=== PATIENT | male | born 1970 | race Two or more races ===

== ENCOUNTER 2022-08-18 17:40 | Emergency (ER) | payer MEDICAID, OTHER ==
[~2022-08-18] VITALS: Ht 172.7 cm; Wt 94.3 kg
--- NOTE | 2022-08-18 17:40 | NUR ---
BIBFAMILY C/O WORSENING ABDOMINAL PAIN X 5 DAYS. AMBULATORY, PLACED ON BED, IN PAIN 07/16
--- NOTE | 2022-08-18 18:14 | NUR ---
URINE SAMPLE SENT TO LAB
--- NOTE | 2022-08-18 18:18 | NUR ---
HAND STONE POLISHER AT BEDSIDE
--- NOTE | 2022-08-18 18:25 | NUR ---
PATIENT TAKEN TO CT VIA [facility]
[2022-08-18 18:34] LABS: BILIRUBIN,URINE 1+ (NEGATIVE); COLOR,URINE YELLOW (YELLOW); LEUKOCYTE ESTERASE ,URINE NEGATIVE (NEGATIVE); NITRITE, URINE NEGATIVE (NEGATIVE); PROTEIN,URINE 1+ mg/dl (NEGATIVE); UGLUCOSE NEGATIVE (NEGATIVE)
[2022-08-18 18:41] LABS: BACTERIA,URINE RARE /HPF (None Seen); MUCUS,URINE Many /LPF (None Seen); URINE AMORPHOUS URATE Many /HPF (None Seen)
[2022-08-18 18:45] LABS: BASOPHILS % (AUTO) 0.3 % (0.0-2.0); EOSINOPHILS % (AUTO) 3.1 % (0.0-6.0); HEMATOCRIT 43 % (39-51); HEMOGLOBIN 13.9 g/dL (13.5-17.5); LYMPHOCYTES # (AUTO) 2.6 K/uL (0.8-4.8); LYMPHOCYTES % (AUTO) 34.4 % (20.0-44.0); MEAN CORPUSCULAR HGB CONC 33 g/dl (31.0-36.0); MEAN CORPUSCULAR VOLUME 85 fL (80-96); MONOCYTES # (AUTO) 0.6 K/uL (0.1-1.30); MONOCYTES % (AUTO) 7.3 % (2.0-12.0); NEUTROPHILS # (AUTO) 4.2 K/uL (1.8-8.9); NEUTROPHILS % (AUTO) 54.9 % (43.0-81.0); PLATELET COUNT (AUTO) 354 K/uL (150-450); RED BLOOD CELL COUNT(AUTO) 5.01 MIL/uL (4.5-6.0); WHITE BLOOD COUNT (AUTO) 7.7 K/uL (4.3-11.0)
[2022-08-18 18:55] LABS: ALANINE AMINOTRANSFERASE 27 U/L (12-78); ALBUMIN 3.2 g/dL (3.4-5.0); ALKALINE PHOSPHATASE 96 U/L (46-116); ASPARTATE AMINOTRANSFERASE 13 U/L (15-37); BILIRUBIN,DIRECT 0.1 mg/dL (0.0-0.2); BILIRUBIN,TOTAL 0.2 mg/dL (0.2-1.0); CALCIUM, SERUM 8.7 mg/dL (8.5-10.1); CARBON DIOXIDE 26 mmol/L (21-32); CHLORIDE 106 mmol/L (98-107); GLUCOSE 134 mg/dL (74-106); LIPASE 66 U/L (73-393); POTASSIUM 4.1 mmol/L (3.5-5.1); SODIUM SERUM 137 mmol/L (136-145); TOTAL PROTEIN, SERUM 6.9 g/dL (6.4-8.2); UREA NITROGEN, BLOOD 17 mg/dL (7-18)
[2022-08-18 18:56] LABS: SQUAMOUS EPITHELIAL CELL,UR 0-2 /HPF (None Seen)
[2022-08-18] MEDS ORDERED: ONDANSETRON HCL/PF 4 MG/2 ML VIAL ONE (19:16)
[2022-08-18] MEDS ORDERED: MORPHINE SULFATE INJ 4 MG/ML DISP.SYRIN ONE (19:17)
[2022-08-18] MEDS ORDERED: ONDANSETRON HCL/PF 4 MG/2 ML VIAL IVP ONE (19:30)
[2022-08-18] MEDS ORDERED: MORPHINE SULFATE INJ 2 MG/ML DISP.SYRIN IV ONE (19:30)
[2022-08-18] MEDS ORDERED: PIPERACILLIN /TAZOBACTAM 3.375 G in IV D5W 50 ML IV ONE (19:30)
[2022-08-18] MEDS ORDERED: PIPERACILLIN /TAZOBACTAM 3.375 G VIAL IV ONE (19:42)
--- NOTE | 2022-08-18 19:51 | NUR ---
SWAB FOR COVID19 SENT TO LAB
[2022-08-18] MEDS ORDERED: diphenhydrAMINE HCL 50 MG/ML VIAL ONE (20:41)
[2022-08-18] MEDS ORDERED: diphenhydrAMINE HCL 50 MG/ML VIAL IV ONE (21:00)
[2022-08-18 22:06] VITALS: BP 104/73
--- NOTE | 2022-08-18 22:30 | NUR ---
Patient does not wish to proceed with medical care recommended by Dr. Salazar. Patient given information related to possible complications, up to and including , which could occur as a result of leaving the hospital at this time. Patient verbalizes understanding of risks involved due to leaving against medical advice. Patient has signed AMA form. Family do nott want to wait for the insurance to either transfer the patient to a contracted hospital or authorize [facility] to keep him here. they stated they're willing to take to a different hospital.
--- NOTE | 2022-08-18 23:18 | NUR ---
sister, Taryn: [phone]
--- NOTE | 2022-08-19 02:11 | NUR ---
PT IS ACCEPTET AT [facility] BY DR SIMMS. GOING TO 308-B NUMBER FOR REPORT: [phone], ORIN
--- NOTE | 2022-08-19 03:23 | NUR ---
report given to Kayleigh guillermo to continue care.
== END 2022-08-19 03:26 | disposition short-term general hospital (02) ==
LOC: ER 17:43
DX: K52.9 Noninfective gastroenteritis and colitis, unspecified (principal); Z20.822 Contact with and (suspected) exposure to COVID-19
CPT/HCPCS: 99285; 74176; 96374; 96375; 71045; 87426; 93005; 85025; 80048; 83605; 83690; 80076; 81001; 36415; 84484; 87081; 87040 ×2; J1200; J2270; J2405; J2543; J7060; C9803

== ENCOUNTER 2024-09-25 10:01 | Emergency (ER) | payer MEDICAID, OTHER ==
[~2024-09-25] VITALS: Ht 172.7 cm; Wt 90.7 kg
[2024-09-25 10:21] VITALS: BP 151/97; TEMP 97.9; O2SAT 99
== END 2024-09-25 10:46 | disposition home or self-care (01) ==
LOC: ER 10:04
DX: J06.9 Acute upper respiratory infection, unspecified (principal)

== ENCOUNTER 2024-11-04 11:40 | Emergency (ER) | payer MEDICAID ==
[~2024-11-04] VITALS: Ht 170.2 cm; Wt 90.7 kg
[2024-11-04] MEDS ORDERED: FLUORESCEIN SODIUM OPHTH 1 EA STRIP ONE (11:57)
[2024-11-04] MEDS ORDERED: TETRAcaine 5 ML BOTTLE ONE (11:57)
[2024-11-04] MEDS ORDERED: ERYT3.5O9 EACHEYE (12:41)
[2024-11-04] MEDS: TETRACAINE HCL 0.5% OPHTALMIC 15 ML BOTTLE OP ONE (12:53)
[2024-11-04] MEDS: FLUORESCEIN SODIUM OPHTH 1 EA STRIP OP ONE (12:53)
[2024-11-04 13:58] VITALS: BP 137/88; TEMP 98.5; O2SAT 99
== END 2024-11-04 13:59 | disposition home or self-care (01) ==
LOC: ER 11:54
DX: S05.02XA Injury of conjunctiva and corneal abrasion without foreign body, left eye, initial encounter (principal); H57.8A2 Foreign body sensation, left eye; W45.8XXA Other foreign body or object entering through skin, initial encounter; Y93.89 Activity, other specified; Y92.89 Other specified places as the place of occurrence of the external cause; Y99.8 Other external cause status